=== PATIENT | male | born 1985 | race Caucasian/White ===

== ENCOUNTER 2020-01-15 10:46 | Outpatient (CLI) | payer BC | END 2020-01-15 10:47 | disposition home or self-care (01) | LOC: COV 10:46 | PROVIDERS: ATTEND Family Medicine | DX: Z20.828 Contact with and (suspected) exposure to other viral communicable diseases (principal) ==

== ENCOUNTER 2021-02-07 08:00 | Outpatient (CLI) | payer BC ==
--- NOTE | 2021-02-07 14:34 | XRAY Report ---
PROCEDURE: Foot 3 View RT INDICATIONS: FOOT PAIN, RIGHT TECHNIQUE: 3 views of the foot were acquired. COMPARISON: None. FINDINGS: Hairline lucency seen at the base of the fifth metatarsal IMPRESSION: Subtle nondisplaced fracture the base of the fifth metatarsal. Reviewed by: Juma Vitale MD on 02/07/2021 2:33 PM PST Approved by: Juma Vitale MD on 02/07/2021 2:33 PM PST Station ID: [id number]
== END 2021-02-07 23:59 | disposition home or self-care (01) ==
LOC: DI.S 08:00
PROVIDERS: ATTEND Physician Assistant
DX: S92.354A Nondisplaced fracture of fifth metatarsal bone, right foot, initial encounter for closed fracture (principal)